=== PATIENT | male | born 1950 | race Hispanic/Latino ===

== ENCOUNTER 2021-06-09 11:50 | Emergency (ER) | payer OTHER, MEDICARE ==
[~2021-06-09] VITALS: Ht 165.1 cm; Wt 98.9 kg
[2021-06-09 12:23] LABS: BASOPHILS % (AUTO) 0.4 % (0.0-5.0); EOSINOPHILS % (AUTO) 1.3 % (0.0-8.0); HEMATOCRIT 33.3 % (42-54); LYMPHOCYTES % (AUTO) 11.1 % (21.0-51.0); MEAN CORPUSCULAR HEMOGLOBIN 30.9 pg (27.0-33.0); MEAN CORPUSCULAR HGB CONC 32.4 g/dL (32.0-36.0); MEAN CORPUSCULAR VOLUME 95.1 fL (79-99); MONOCYTES % (AUTO) 7.1 % (3.0-13.0); NEUTROPHILS % (AUTO) 79.1 % (40.0-77.0); PLATELET COUNT (AUTO) 324 K/uL (130-400); RED CELL DISTRIBUTION WIDTH 13.8 % (11.0-15.5); WHITE BLOOD COUNT (AUTO) 15.3 K/uL (4.8-10.8)
[2021-06-09 12:32] LABS: CREATININE 1.4 mg/dL (0.5-1.5); POTASSIUM 3.6 mmol/L (3.5-5.1)
[2021-06-09 12:36] LABS: ALBUMIN 3.8 g/dL (3.5-5.0); BILIRUBIN,TOTAL 0.6 mg/dL (0.2-1.0); TOTAL PROTEIN, SERUM 7.2 g/dL (6.0-8.3)
[2021-06-09 12:51] LABS: APPEARANCE,URINE Clear (CLEAR); BILIRUBIN,URINE Negative (NEGATIVE); COLOR,URINE Yellow (YELLOW); GLUCOSE, URINE (UA) Negative (NEGATIVE); KETONES,URINE Negative (NEGATIVE); LEUKOCYTE ESTERASE ,URINE Moderate (NEGATIVE); NITRATE,URINE Negative (NEGATIVE); OCCULT BLOOD,URINE Negative (NEGATIVE); PROTEIN,URINE Negative (NEGATIVE); UROBILINOGEN,URINE 0.2 mg/dL (0.2-1.0)
[2021-06-09] MEDS ORDERED: 0.9%NACL 1000ML 1,000 ML IV ONE ×3 (13:00→15:30)
[2021-06-09 13:08] LABS: RBC,URINE None Seen /HPF (0-1); WBC,URINE 0-1 /HPF (0-1)
[2021-06-09 13:09] LABS: SQUAMOUS EPITHELIAL CELL,UR 0-2 /HPF (0-2)
[2021-06-09 13:10] LABS: BACTERIA,URINE Few /HPF (None Seen)
[2021-06-09 13:11] LABS: CALCIUM OXALATE CRYSTALS,UR Few /LPF (None Seen)
[2021-06-09] MEDS ORDERED: IOHEXOL 350 MG/ML 100ML INFUS..BTL IV ONE (13:58)
[2021-06-09] MEDS ORDERED: CIPR-278 PO (15:35)
[2021-06-09] MEDS ORDERED: DOCU-116 PO (15:39)
[2021-06-09] MEDS ORDERED: MAG/ALUM/SIMETH 30 ML UDCUP PO ONE (16:00)
[2021-06-09 16:42] VITALS: BP 117/70
== END 2021-06-09 16:44 | disposition home or self-care (01) ==
LOC: EDH 11:50
DX: K76.0 Fatty (change of) liver, not elsewhere classified (principal); N39.0 Urinary tract infection, site not specified; K59.00 Constipation, unspecified; I10 Essential (primary) hypertension; E78.00 Pure hypercholesterolemia, unspecified; I95.9 Hypotension, unspecified; E86.0 Dehydration; R11.2 Nausea with vomiting, unspecified
CPT/HCPCS: 36415; 71045; 74177; 76705; 80053; 81001; 82150; 83690; 84484; 85025; 87088; 93005 ×2; 96360; 96361; 99285; J7030; Q9967

== ENCOUNTER 2021-09-08 10:47 | Emergency (ER) | payer OTHER, MEDICARE ==
[~2021-09-08] VITALS: Ht 160 cm; Wt 98.9 kg
[~2021-09-08 10:47] MED LIST: CIPR-278 PO; DOCU-116 PO
[2021-09-08] MEDS ORDERED: 0.9%NACL 1000ML 1,000 ML IV ONE (11:30)
[2021-09-08] MEDS ORDERED: ASPIRIN 325MG TAB PO ONE (11:30)
[2021-09-08 11:34] LABS: CREATININE 1.6 mg/dL (0.5-1.5); POTASSIUM 3.8 mmol/L (3.5-5.1)
[2021-09-08 11:35] LABS: BASOPHILS % (AUTO) 0.4 % (0.0-5.0); EOSINOPHILS % (AUTO) 1.9 % (0.0-8.0); HEMATOCRIT 34.8 % (42-54); LYMPHOCYTES % (AUTO) 16.8 % (21.0-51.0); MEAN CORPUSCULAR HGB CONC 32.5 g/dL (32.0-36.0); MEAN CORPUSCULAR VOLUME 92.3 fL (79-99); MONOCYTES % (AUTO) 6.6 % (3.0-13.0); NEUTROPHILS % (AUTO) 73.7 % (40.0-77.0); PLATELET COUNT (AUTO) 336 K/uL (130-400); RED BLOOD CELL COUNT(AUTO) 3.77 MIL/uL (4.50-6.20); RED CELL DISTRIBUTION WIDTH 13.4 % (11.0-15.5); WHITE BLOOD COUNT (AUTO) 9.4 K/uL (4.8-10.8)
[2021-09-08 11:38] LABS: ALBUMIN 3.9 g/dL (3.5-5.0); BILIRUBIN,TOTAL 0.6 mg/dL (0.2-1.0); TOTAL PROTEIN, SERUM 6.8 g/dL (6.0-8.3)
[2021-09-08] MEDS ORDERED: HYDR12.54 PO (13:41)
[2021-09-08] MEDS ORDERED: LOSA100T58 PO (13:41)
[2021-09-08] MEDS ORDERED: TAMS-1 PO (13:41)
[2021-09-08] MEDS ORDERED: FENO145T26 PO (13:41)
[2021-09-08] MEDS ORDERED: AMLO-258 PO (13:42)
[2021-09-08] MEDS ORDERED: LEVO5TAB13 PO (13:42)
[2021-09-08] MEDS ORDERED: FINA5TAB41 PO (13:42)
[2021-09-08] MEDS ORDERED: AEC81 PO (13:42)
[2021-09-08] MEDS ORDERED: ATOR40TA69 PO (13:42)
[2021-09-08] MEDS ORDERED: IOHEXOL-350 75 ML VIAL IV ONE (13:51)
[2021-09-08 15:29] LABS: APPEARANCE,URINE Clear (CLEAR); BILIRUBIN,URINE Negative (NEGATIVE); COLOR,URINE Yellow (YELLOW); GLUCOSE, URINE (UA) Negative (NEGATIVE); KETONES,URINE Negative (NEGATIVE); LEUKOCYTE ESTERASE ,URINE Negative (NEGATIVE); NITRATE,URINE Negative (NEGATIVE); OCCULT BLOOD,URINE Negative (NEGATIVE); PROTEIN,URINE POS 1+ mg/dL (NEGATIVE); UROBILINOGEN,URINE 0.2 mg/dL (0.2-1.0)
[2021-09-08] MEDS ORDERED: ONDANSETRON 4MG INJ IVP ONE (15:30)
[2021-09-08] MEDS ORDERED: MORPHINE 2 MG SYG IVP ONE (15:30)
[2021-09-08 15:40] LABS: BACTERIA,URINE Few /HPF (None Seen); SQUAMOUS EPITHELIAL CELL,UR Rare /HPF (0-2)
[2021-09-08 15:41] LABS: COARSE GRANULAR CASTS,URINE 0-2 /LPF (None Seen)
[2021-09-08] MEDS ORDERED: BISACODYL 5 MG TABLET.DR PO ONE ×2 (18:25→21:00)
[2021-09-08] MEDS ORDERED: 0.9% NACL 500ML IV.SOLN 500 ML IV ONE (19:00)
[2021-09-08 19:44] VITALS: BP 121/60
[2021-09-08] MEDS ORDERED: LEVOFLOXACIN 500 MG TABLET PO SCH (21:00)
[2021-09-08] MEDS ORDERED: DOCUSATE SODIUM 100 MG CAP PO SCH (21:00)
[2021-09-09] MEDS ORDERED: TAMSULOSIN HCL 0.4 MG CAP.ER.24H PO SCH (09:00)
[2021-09-09] MEDS ORDERED: FINASTERIDE 5 MG TABLET PO SCH (09:00)
[2021-09-09] MEDS ORDERED: FENOFIBRATE NANOCRYSTALLIZED 145 MG TAB PO SCH (09:00)
[2021-09-09] MEDS ORDERED: ATORVASTATIN 40 MG TABLET PO SCH (09:00)
[2021-09-09] MEDS ORDERED: LEVOCETIRIZINE DIHYDROCHLORIDE 5 MG PO SCH (17:00)
== END 2021-09-08 20:22 | disposition admitted as inpatient to this hospital (09) ==
LOC: EDH 10:47
DX: R16.0 Hepatomegaly, not elsewhere classified (principal); K76.89 Other specified diseases of liver; G51.0 Bell's palsy; E78.00 Pure hypercholesterolemia, unspecified; I95.9 Hypotension, unspecified; Z79.899 Other long term (current) drug therapy; Z79.82 Long term (current) use of aspirin
CPT/HCPCS: 36415; 74176; 74177; 80053; 81001; 84484; 85025; 93005; 96361; 96374; 96375; 99285; J2405; J7030 ×2; Q9967